=== PATIENT | female | born 1950 | race Caucasian/White ===

== ENCOUNTER 2024-02-26 14:52 | Outpatient (AMB) | payer MEDICARE, SELFPAY ==
[2024-02-26 15:05] VITALS: BP 129/59; PULSE 96; RESP 18; TEMP 36.1; O2SAT 95; BMI 25.0
--- NOTE | 2024-02-26 15:05 | PD.ORTHCLVIS ---
Vital signs 02/26/24 15:05 Height 1.65 m Height Method Stated Weight 68.124 kg Weight Measurement Method Standing Scale BMI 25.0 BP 129/59 L Blood Pressure Source Automatic Cuff Blood Pressure Location Right Upper Arm Position Sitting Respiration 18 Pulse 96 Pulse Source Monitor Temp 96.9 F Temp Source Temporal Artery Scan Pulse Oximetry (%) 95 Oxygen Delivery Method Room Air Med/Allergies Allergies & Medications Allergies betamethasone Allergy (Intermediate, Verified 02/26/24 15:06) Hives clotrimazole Allergy (Verified 02/26/24 15:06) Medication Reconciliation aspirin 81 mg chewable tablet 81 mg PO QDAY 09/28/22 [History Confirmed 02/26/24] magnesium oxide 250 mg PO BID 09/28/22 [History Confirmed 02/26/24] nifedipine 30 mg tablet,extended release 24 hr 30 mg PO DAILY 09/28/22 [History Confirmed 02/26/24] rosuvastatin 40 mg tablet 40 mg PO HS 09/28/22 [History Confirmed 02/26/24] potassium citrate 10 mEq (1,080 mg) tablet,extended release 10 meq PO DAILY 02/01/24 [History Confirmed 02/26/24] acetaminophen 500 mg tablet (Acetaminophen Extra Strength) 1,000 mg (2 x 500 mg) PO Q6H PRN pain #90 tabs 02/11/24 [Rx Confirmed 02/26/24] aspirin 81 mg tablet,delayed release 81 mg PO BID #60 tabs 02/11/24 [Rx Confirmed 02/26/24] doxycycline hyclate 100 mg tablet 100 mg PO BID #14 tabs 02/11/24 [Rx Confirmed 02/26/24] gabapentin 300 mg capsule 300 mg PO .qhs #30 caps 02/11/24 [Rx Confirmed 02/26/24] sennosides 8.6 mg-docusate sodium 50 mg tablet (Senna-S) 1 tab-cap PO QDAY #30 tabs 02/11/24 [Rx Confirmed 02/26/24] cyclobenzaprine 5 mg tablet 5 mg PO QHS PRN muscle spasm #30 tabs 02/26/24 [Rx] oxycodone 5 mg tablet 5 mg PO Q6H PRN pain #28 tabs 02/26/24 [Rx] Subjective Visit Visit for: follow up visit and knee Immunization / Flu Flu Vaccine in the Last 12 Months: No Flu Vaccine Exclusion Criteria: No Exclusion Criteria History of Present Illness Chief complaint: 2 WEEK POST OP TKA Ananya is a pleasant 73-year-old female with 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 She is doing well status post left total knee replacement. We will get x-rays at the next visit. She is to transition outpatient physical therapy Personal History Occupation: RETIRED Hobbies: GARDENING Pain Pain level (0-10): 8 Pain duration: NO Pain location: inside (medial), outside (lateral), anterior and posterior Pain quality: sharp, dull and aching Pain timing: increases with activity Associated signs & symptoms: numbness Ambulatory data Ambulatory device: walker Treatments Improvement with previous injections: No Improvement with PT: No Improvement with NSAIDS: n/a Review of Systems Review of Systems: All systems negative unless otherwise noted in HPI. Exam Exam Patient is in no acute distress and is cooperative with the examination today. Breathing is nonlabored. In no respiratory distress. Bilateral extremities were evaluated and demonstrates sensation intact to light touch. Palpable pedal pulses are present. No significant edema is present. Bilateral hips were examined. The patient has no pain with log roll of the hips. Internal rotation to 30 degrees and external rotation to 30 degrees is painless. Negative FADIR. Left knee incision is clean dry and intact. I can see evidence of The right knee was also examined. The right knee is in [varus] alignment. Range of motion from [0-120] degrees. Knee is stable to varus and valgus as well as AP translation with <5mm. Patient has a [negative] McMurrays. There is [no] pain with patellofemoral compression and [no] crepitus noted. The knee is [tender] to palpation [medially]. Assessment and Plan Problem List (1) History of total left knee replacement: Status: Acute Plan: Patient is doing well status post left total knee replacement. We will see her in approximately 4 weeks. She should transition outpatient physical therapy. She works. Advanced Care Planning Discussion Advance care planning discussed with:: patient Office Procedures GNS Level of Care Nursing/Assessment Patient Status: Established Patient Nursing Assessment/Reassesment: Medication Reconciliation, Update PMH in EMR and Vital Signs Coordination of Care: Complex Care and Chronic Disease 1-5, Education Complex Pt/Fam, Consent,records obtained, informed consent, Results/Orders obtained and Staff clarify orders Established Patient Charge Established Patient Point Assignment: 95 Established Patient Point Charge: Level 3 (80-115) Past Medical History Past Medical History Have you ever been diagnosed with any of the following: Neurological Problems Seizures: No Cardiology Problems Myocardial Infarction: No Cardiac Arrhythmia: No Atrial Fibrillation: No Angina: No Heart Murmur: No Coronary Artery Disease: No Atherosclerotic Heart Disease: No Peripheral Vascular Disease: No Hypercholesterolemia: Yes Aneurysm: No Congestive Heart Failure: No Congenital Heart Disease: No Valvular Heart Disease: No Rheumatic Fever: No Cardiomyopathy: No Edema: No Pericarditis: No Cellulitis: No Deep Vein Thrombosis: No Hypertension: Yes Hypotension: No Varicose Veins: No Respiratory Problems Chronic Obstructive Pulmonary Disease (COPD): No Asthma: No Smoking: No Smoking Exposure: No Stomache/Intestinal Problems Hepatitis: No Diverticulitis: Yes Diverticulosis: Yes Colorectal Cancer: No Obesity: Yes Genital/Urinary Problems Renal Disease: No Kidney Stones: Yes (many yrs ago) Prostate Cancer: No Reproductive Problems Breast Cancer: No Endometriosis: Yes Genital Herpes: No Gonorrhea: No Pelvic Inflammatory Disease: No Previous Pregnancies: No Syphilis: No Testicular Cancer: No Uterine Prolapse: No Musculoskeletal Problems Bone Cancer: No Arthritis: Yes Carpal Tunnel Syndrome: No Head,Eye,Nose,Throat Problems Cataracts: No Endocrine Problems Diabetes Mellitus Type 1: No Diabetes Mellitus Type 2: No Blood Problems Sickle Cell Disease: No Other Problems Hospitalization: Yes (surgery) Down Syndrome: No Developmental Delay: No Shingles: No Falls: No Blood Transfusions: No Blood Transfusion Reaction: No Anesthesia Reactions: No Organ Transplant: No Chemotherapy: No Radiation Therapy: No Hyperbaric Therapy: No MRSA: No VRSA: No Vancomycin-Resistant Enterococci: No Human Immunodeficiency Virus (HIV): No Chicken Pox: Yes Measles: Yes Mumps: No Rubella (Sinhala Measles): No Pertussis: No Clostridium Difficile: No Cancer: No Cervical Cancer: No Lung Cancer: No Ovarian Cancer: No Surgical History Coronary Artery Bypass Graft: No Valve Replacement: No Hysterectomy: Yes Pacemaker: No Thyroidectomy: No
== END 2024-02-26 15:20 | disposition home or self-care (01) ==
LOC: HODSRG 14:52
PROVIDERS: Supervising Provider Orthopaedic Surgery Adult Reconstructive Orthopaedic Surgery; Visit Provider Orthopaedic Surgery Adult Reconstructive Orthopaedic Surgery
DX: Z96.652 Presence of left artificial knee joint (principal); M17.0 Bilateral primary osteoarthritis of knee; I10 Essential (primary) hypertension; E78.00 Pure hypercholesterolemia, unspecified
CPT/HCPCS: 99213; G0463

== ENCOUNTER → 2024-03-18 | Outpatient (CLI) | payer MEDICARE, SELFPAY ==
--- NOTE | 2024-03-18 14:32 | XR_ITS ---
Examination: Left knee 4 views TECHNIQUE: AP oblique lateral axial left knee 4 views standing Exam date and time: March 18, 2024 1541 hours INDICATIONS: Status post knee arthroplasty February 03, 2024 FINDINGS: Moderate osteopenia Total left knee arthroplasty. Satisfactory alignment No patellar dislocation Small to moderate knee effusion IMPRESSION: Total left knee arthroplasty with satisfactory alignment
== END | disposition home or self-care (01) ==
LOC: CDIM 14:14
PROVIDERS: PCP Physician Assistant; Referring Provider Orthopaedic Surgery Adult Reconstructive Orthopaedic Surgery; Visit Provider Orthopaedic Surgery Adult Reconstructive Orthopaedic Surgery
DX: M17.12 Unilateral primary osteoarthritis, left knee (principal); Z96.652 Presence of left artificial knee joint
CPT/HCPCS: 73564

== ENCOUNTER 2024-03-25 09:44 | Outpatient (AMB) | payer MEDICARE, SELFPAY ==
[2024-03-25 10:10] VITALS: BP 136/84; PULSE 99; RESP 18; TEMP 36.1; O2SAT 98; BMI 25.2
--- NOTE | 2024-03-25 10:10 | PD.ORTHCLVIS ---
Vital signs 03/25/24 10:10 Height 1.65 m Height Method Stated Weight 68.663 kg Weight Measurement Method Standing Scale BMI 25.2 BP 136/84 H Blood Pressure Source Automatic Cuff Blood Pressure Location Right Upper Arm Position Sitting Respiration 18 Pulse 99 Pulse Source Monitor Temp 96.9 F Temp Source Temporal Artery Scan Pulse Oximetry (%) 98 Oxygen Delivery Method Room Air Med/Allergies Allergies & Medications Allergies betamethasone Allergy (Intermediate, Verified 03/25/24 10:12) Hives clotrimazole Allergy (Verified 03/25/24 10:12) Medication Reconciliation aspirin 81 mg chewable tablet 81 mg PO QDAY 09/28/22 [History Confirmed 03/25/24] magnesium oxide 250 mg PO BID 09/28/22 [History Confirmed 03/25/24] nifedipine 30 mg tablet,extended release 24 hr 30 mg PO DAILY 09/28/22 [History Confirmed 03/25/24] rosuvastatin 40 mg tablet 40 mg PO HS 09/28/22 [History Confirmed 03/25/24] potassium citrate 10 mEq (1,080 mg) tablet,extended release 10 meq PO DAILY 02/01/24 [History Confirmed 03/25/24] acetaminophen 500 mg tablet (Acetaminophen Extra Strength) 1,000 mg (2 x 500 mg) PO Q6H PRN pain #90 tabs 02/11/24 [Rx Confirmed 03/25/24] aspirin 81 mg tablet,delayed release 81 mg PO BID #60 tabs 02/11/24 [Rx Confirmed 03/25/24] doxycycline hyclate 100 mg tablet 100 mg PO BID #14 tabs 02/11/24 [Rx Confirmed 03/25/24] gabapentin 300 mg capsule 300 mg PO .qhs #30 caps 02/11/24 [Rx Confirmed 03/25/24] sennosides 8.6 mg-docusate sodium 50 mg tablet (Senna-S) 1 tab-cap PO QDAY #30 tabs 02/11/24 [Rx Confirmed 03/25/24] cyclobenzaprine 5 mg tablet 5 mg PO QHS PRN muscle spasm #30 tabs 02/26/24 [Rx Confirmed 03/25/24] oxycodone 5 mg tablet 5 mg PO Q6H PRN pain #28 tabs 02/26/24 [Rx Confirmed 12/10/24] Subjective Visit Visit for: post op #2 and knee Immunization / Flu Flu Vaccine in the Last 12 Months: Yes Flu Vaccine Exclusion Criteria: Already Received History of Present Illness Chief complaint: POST OP Ananya is a pleasant 73-year-old female with 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 She is doing well status post left total knee replacement. She is 6 weeks status post left total knee replacement. The incision looks great. She is working with [facility] Personal History Occupation: RETIRED Hobbies: GARDENING Pain Pain level (0-10): 3 Pain duration: COMES AND GOES Pain location: anterior Pain quality: dull and aching Pain timing: increases with activity Associated signs & symptoms: numbness Ambulatory data Ambulatory device: cane Treatments Improvement with previous injections: No Improvement with PT: No Improvement with NSAIDS: n/a Review of Systems Review of Systems: All systems negative unless otherwise noted in HPI. Exam Exam Patient is in no acute distress and is cooperative with the examination today. Breathing is nonlabored. In no respiratory distress. Bilateral extremities were evaluated and demonstrates sensation intact to light touch. Palpable pedal pulses are present. No significant edema is present. Bilateral hips were examined. The patient has no pain with log roll of the hips. Internal rotation to 30 degrees and external rotation to 30 degrees is painless. Negative FADIR. Left knee incision is clean dry and intact. I can see evidence of The right knee was also examined. The right knee is in [varus] alignment. Range of motion from [0-120] degrees. Knee is stable to varus and valgus as well as AP translation with <5mm. Patient has a [negative] McMurrays. There is [no] pain with patellofemoral compression and [no] crepitus noted. The knee is [tender] to palpation [medially]. Assessment and Plan Problem List (1) History of total left knee replacement: Status: Acute Plan: Patient is doing well status post left total knee replacement. We will see her in approximately 6 weeks. We will see her in approximately 6 to 8 weeks for routine follow-up. Her range of motion is fantastic at this time Advanced Care Planning Discussion Advance care planning discussed with:: patient Office Procedures GNS Level of Care Nursing/Assessment Patient Status: Established Patient Nursing Assessment/Reassesment: Medication Reconciliation, Update PMH in EMR and Vital Signs Coordination of Care: Complex Care and Chronic Disease 1-5, Education Complex Pt/Fam, Consent,records obtained, informed consent, Results/Orders obtained and Staff clarify orders Established Patient Charge Established Patient Point Assignment: 95 Established Patient Point Charge: EP Level 3 (80-115) Past Medical History Past Medical History Have you ever been diagnosed with any of the following: Neurological Problems Seizures: No Cardiology Problems Myocardial Infarction: No Cardiac Arrhythmia: No Atrial Fibrillation: No Angina: No Heart Murmur: No Coronary Artery Disease: No Atherosclerotic Heart Disease: No Peripheral Vascular Disease: No Hypercholesterolemia: Yes Aneurysm: No Congestive Heart Failure: No Congenital Heart Disease: No Valvular Heart Disease: No Rheumatic Fever: No Cardiomyopathy: No Edema: No Pericarditis: No Cellulitis: No Deep Vein Thrombosis: No Hypertension: Yes Hypotension: No Varicose Veins: No Respiratory Problems Chronic Obstructive Pulmonary Disease (COPD): No Asthma: No Smoking: No Smoking Exposure: No Stomache/Intestinal Problems Hepatitis: No Diverticulitis: Yes Diverticulosis: Yes Colorectal Cancer: No Obesity: Yes Genital/Urinary Problems Renal Disease: No Kidney Stones: Yes (many yrs ago) Prostate Cancer: No Reproductive Problems Breast Cancer: No Endometriosis: Yes Genital Herpes: No Gonorrhea: No Pelvic Inflammatory Disease: No Previous Pregnancies: No Syphilis: No Testicular Cancer: No Uterine Prolapse: No Musculoskeletal Problems Bone Cancer: No Arthritis: Yes Carpal Tunnel Syndrome: No Head,Eye,Nose,Throat Problems Cataracts: No Endocrine Problems Diabetes Mellitus Type 1: No Diabetes Mellitus Type 2: No Blood Problems Sickle Cell Disease: No Other Problems Hospitalization: Yes (surgery) Down Syndrome: No Developmental Delay: No Shingles: No Falls: No Blood Transfusions: No Blood Transfusion Reaction: No Anesthesia Reactions: No Organ Transplant: No Chemotherapy: No Radiation Therapy: No Hyperbaric Therapy: No MRSA: No VRSA: No Vancomycin-Resistant Enterococci: No Human Immunodeficiency Virus (HIV): No Chicken Pox: Yes Measles: Yes Mumps: No Rubella ([place] Measles): No Pertussis: No Clostridium Difficile: No Cancer: No Cervical Cancer: No Lung Cancer: No Ovarian Cancer: No Surgical History Coronary Artery Bypass Graft: No Valve Replacement: No Total Knee Replacement: Yes Hysterectomy: Yes Pacemaker: No Thyroidectomy: No
== END 2024-03-25 10:17 | disposition home or self-care (01) ==
LOC: HODSRG 09:44
PROVIDERS: Supervising Provider Orthopaedic Surgery Adult Reconstructive Orthopaedic Surgery; Visit Provider Orthopaedic Surgery Adult Reconstructive Orthopaedic Surgery
DX: Z96.652 Presence of left artificial knee joint (principal); M17.0 Bilateral primary osteoarthritis of knee; I10 Essential (primary) hypertension; E78.00 Pure hypercholesterolemia, unspecified
CPT/HCPCS: 99213; G0463

== ENCOUNTER 2024-05-20 09:53 | Outpatient (AMB) | payer MEDICARE, SELFPAY ==
[2024-05-20 10:47] VITALS: BP 118/72; PULSE 81; RESP 18; TEMP 36.1; O2SAT 96; BMI 25.8
--- NOTE | 2024-05-20 10:47 | PD.ORTHCLVIS ---
Vital signs 05/20/24 10:47 Height 1.65 m Height Method Stated Weight 70.335 kg Weight Measurement Method Standing Scale BMI 25.8 BP 118/72 Blood Pressure Source Automatic Cuff Blood Pressure Location Right Upper Arm Position Sitting Respiration 18 Pulse 81 Pulse Source Monitor Temp 97.0 F Temp Source Temporal Artery Scan Pulse Oximetry (%) 96 Oxygen Delivery Method Room Air Med/Allergies Allergies & Medications Allergies betamethasone Allergy (Intermediate, Verified 05/20/24 10:47) Hives clotrimazole Allergy (Verified 05/20/24 10:47) Medication Reconciliation aspirin 81 mg chewable tablet 81 mg PO QDAY 09/28/22 [History Confirmed 05/20/24] magnesium oxide 250 mg PO BID 09/28/22 [History Confirmed 05/20/24] nifedipine 30 mg tablet,extended release 24 hr 30 mg PO DAILY 09/28/22 [History Confirmed 05/20/24] rosuvastatin 40 mg tablet 40 mg PO HS 09/28/22 [History Confirmed 05/20/24] potassium citrate 10 mEq (1,080 mg) tablet,extended release 10 meq PO DAILY 02/01/24 [History Confirmed 05/20/24] acetaminophen 500 mg tablet (Acetaminophen Extra Strength) 1,000 mg (2 x 500 mg) PO Q6H PRN pain #90 tabs 02/11/24 [Rx Confirmed 05/20/24] aspirin 81 mg tablet,delayed release 81 mg PO BID #60 tabs 02/11/24 [Rx Confirmed 05/20/24] doxycycline hyclate 100 mg tablet 100 mg PO BID #14 tabs 02/11/24 [Rx Confirmed 05/20/24] gabapentin 300 mg capsule 300 mg PO .qhs #30 caps 02/11/24 [Rx Confirmed 05/20/24] sennosides 8.6 mg-docusate sodium 50 mg tablet (Senna-S) 1 tab-cap PO QDAY #30 tabs 02/11/24 [Rx Confirmed 05/20/24] cyclobenzaprine 5 mg tablet 5 mg PO QHS PRN muscle spasm #30 tabs 02/26/24 [Rx Confirmed 05/20/24] oxycodone 5 mg tablet 5 mg PO Q6H PRN pain #28 tabs 02/26/24 [Rx Confirmed 05/20/24] Exam Exam Patient is in no acute distress and is cooperative with the examination today. Breathing is nonlabored. In no respiratory distress. Bilateral extremities were evaluated and demonstrates sensation intact to light touch. Palpable pedal pulses are present. No significant edema is present. Bilateral hips were examined. The patient has no pain with log roll of the hips. Internal rotation to 30 degrees and external rotation to 30 degrees is painless. Negative FADIR. Left knee incision is clean dry and intact. ROM 0-100 The right knee was also examined. The right knee is in [varus] alignment. Range of motion from [0-120] degrees. Knee is stable to varus and valgus as well as AP translation with <5mm. Patient has a [negative] McMurrays. There is [no] pain with patellofemoral compression and [no] crepitus noted. The knee is [tender] to palpation [medially]. Assessment and Plan Problem List (1) History of total left knee replacement: Status: Acute Plan: Patient is doing well status post left total knee replacement. We will see her in approximately 12 weeks. We will see her in approximately 6 to 8 weeks for routine follow-up. Her range of motion is fantastic at this time Advanced Care Planning Discussion Advance care planning discussed with:: patient Office Procedures GNS Level of Care Nursing/Assessment Patient Status: Established Patient Nursing Assessment/Reassesment: Medication Reconciliation, Update PMH in EMR and Vital Signs Coordination of Care: Complex Care and Chronic Disease 1-5, Education Complex Pt/Fam, Consent,records obtained, informed consent, Results/Orders obtained and Staff clarify orders Established Patient Charge Established Patient Point Assignment: 95 Established Patient Point Charge: EP Level 3 (80-115) MA Intake Visit Data Collection New Patient or Established: Established Patient (seen at [facility] within 3 years) Reason for Visit:: POST OP TKA Seen by Clinical Staff ONLY (RN/MA): No Verbal consent obtained for Telemed visit?: No Rn Oncology Research Required: No PCP or OBGYN visit in last 3 months: Yes Hx Now: No Do You Feel Safe at Home: Yes Authorities Contacted: N/A Questionairres Past Medical History Past Medical History Have you ever been diagnosed with any of the following: Neurological Problems Seizures: No Cardiology Problems Myocardial Infarction: No Cardiac Arrhythmia: No Atrial Fibrillation: No Angina: No Heart Murmur: No Coronary Artery Disease: No Atherosclerotic Heart Disease: No Peripheral Vascular Disease: No Hypercholesterolemia: Yes Aneurysm: No Congestive Heart Failure: No Congenital Heart Disease: No Valvular Heart Disease: No Rheumatic Fever: No Cardiomyopathy: No Edema: No Pericarditis: No Cellulitis: No Deep Vein Thrombosis: No Hypertension: Yes Hypotension: No Varicose Veins: No Respiratory Problems Chronic Obstructive Pulmonary Disease (COPD): No Asthma: No Smoking: No Smoking Exposure: No Stomache/Intestinal Problems Hepatitis: No Diverticulitis: Yes Diverticulosis: Yes Colorectal Cancer: No Obesity: Yes Genital/Urinary Problems Renal Disease: No Kidney Stones: Yes (many yrs ago) Prostate Cancer: No Reproductive Problems Breast Cancer: No Endometriosis: Yes Genital Herpes: No Gonorrhea: No Pelvic Inflammatory Disease: No Previous Pregnancies: No Syphilis: No Testicular Cancer: No Uterine Prolapse: No Musculoskeletal Problems Bone Cancer: No Arthritis: Yes Carpal Tunnel Syndrome: No Head,Eye,Nose,Throat Problems Cataracts: No Endocrine Problems Diabetes Mellitus Type 1: No Diabetes Mellitus Type 2: No Blood Problems Sickle Cell Disease: No Other Problems Hospitalization: Yes (surgery) Down Syndrome: No Developmental Delay: No Shingles: No Falls: No Blood Transfusions: No Blood Transfusion Reaction: No Anesthesia Reactions: No Organ Transplant: No Chemotherapy: No Radiation Therapy: No Hyperbaric Therapy: No MRSA: No VRSA: No Vancomycin-Resistant Enterococci: No Human Immunodeficiency Virus (HIV): No Chicken Pox: Yes Measles: Yes Mumps: No Rubella (Faroese Measles): No Pertussis: No Clostridium Difficile: No Cancer: No Cervical Cancer: No Lung Cancer: No Ovarian Cancer: No Surgical History Coronary Artery Bypass Graft: No Valve Replacement: No Total Knee Replacement: Yes Hysterectomy: Yes Pacemaker: No Thyroidectomy: No Subjective Visit Visit for: follow up visit, post op #2 and knee Immunization / Flu Flu Vaccine in the Last 12 Months: Yes Flu Vaccine Exclusion Criteria: Already Received History of Present Illness Chief complaint: POST OP TKA Ananya is a pleasant 73-year-old female with 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 She is doing well status post left total knee replacement. She is 12 weeks status post left total knee replacement. T Pain Pain level (0-10): 0 Associated signs & symptoms: none Ambulatory data Ambulatory device: cane Treatments Improvement with previous injections: No Improvement with PT: No Improvement with NSAIDS: n/a Review of Systems Review of Systems: All systems negative unless otherwise noted in HPI.
== END 2024-05-20 10:54 | disposition home or self-care (01) ==
PROVIDERS: PCP Physician Assistant; Referring Provider Physician Assistant; Supervising Provider Orthopaedic Surgery Adult Reconstructive Orthopaedic Surgery; Visit Provider Orthopaedic Surgery Adult Reconstructive Orthopaedic Surgery
DX: Z96.652 Presence of left artificial knee joint (principal); M17.0 Bilateral primary osteoarthritis of knee; I10 Essential (primary) hypertension; E78.00 Pure hypercholesterolemia, unspecified
CPT/HCPCS: 99213; G0463

== ENCOUNTER → 2024-08-08 | Outpatient (CLI) | payer MEDICARE, SELFPAY ==
[2024-08-09 08:54] LABS: BVAG Candida Negative (Negative); Bacterial Vaginosis Markers Negative (Negative); Candida glabrata Positive (Negative); Candida krusei PCR Negative (Negative); Trichomonas Negative (Negative)
== END | disposition home or self-care (01) ==
LOC: SLDO 15:27
PROVIDERS: Referring Provider Specialist; Visit Provider Specialist
DX: A59.01 Trichomonal vulvovaginitis (principal); B37.89 Other sites of candidiasis; N76.0 Acute vaginitis
CPT/HCPCS: 81514

== ENCOUNTER 2024-08-14 10:36 | Outpatient (AMB) | payer MEDICARE, SELFPAY ==
[2024-08-14 11:14] VITALS: BP 125/77; PULSE 81; RESP 18; TEMP 36.1; O2SAT 96; BMI 26.0
--- NOTE | 2024-08-14 11:14 | PD.ORTHCLVIS ---
Vital signs 08/14/24 11:14 Height 1.65 m Height Method Stated Weight 70.845 kg Weight Measurement Method Standing Scale BMI 26.0 BP 125/77 Blood Pressure Source Automatic Cuff Blood Pressure Location Left Upper Arm Position Sitting Respiration 18 Pulse 81 Pulse Source Monitor Temp 96.9 F Temp Source Temporal Artery Scan Pulse Oximetry (%) 96 Oxygen Delivery Method Room Air Med/Allergies Allergies & Medications Allergies betamethasone Allergy (Intermediate, Verified 08/14/24 11:14) Hives clotrimazole Allergy (Verified 08/14/24 11:14) Medication Reconciliation aspirin 81 mg chewable tablet 81 mg PO QDAY 09/28/22 [History Confirmed 08/14/24] magnesium oxide 250 mg PO BID 09/28/22 [History Confirmed 08/14/24] nifedipine 30 mg tablet,extended release 24 hr 30 mg PO DAILY 09/28/22 [History Confirmed 08/14/24] rosuvastatin 40 mg tablet 40 mg PO HS 09/28/22 [History Confirmed 08/14/24] potassium citrate 10 mEq (1,080 mg) tablet,extended release 10 meq PO DAILY 02/01/24 [History Confirmed 08/14/24] acetaminophen 500 mg tablet (Acetaminophen Extra Strength) 1,000 mg (2 x 500 mg) PO Q6H PRN pain #90 tabs 02/11/24 [Rx Confirmed 08/14/24] aspirin 81 mg tablet,delayed release 81 mg PO BID #60 tabs 02/11/24 [Rx Confirmed 08/14/24] doxycycline hyclate 100 mg tablet 100 mg PO BID #14 tabs 02/11/24 [Rx Confirmed 08/14/24] gabapentin 300 mg capsule 300 mg PO .qhs #30 caps 02/11/24 [Rx Confirmed 08/14/24] sennosides 8.6 mg-docusate sodium 50 mg tablet (Senna-S) 1 tab-cap PO QDAY #30 tabs 02/11/24 [Rx Confirmed 08/14/24] cyclobenzaprine 5 mg tablet 5 mg PO QHS PRN muscle spasm #30 tabs 02/26/24 [Rx Confirmed 08/14/24] oxycodone 5 mg tablet 5 mg PO Q6H PRN pain #28 tabs 02/26/24 [Rx Confirmed 08/14/24] Exam Exam Patient is in no acute distress and is cooperative with the examination today. Breathing is nonlabored. In no respiratory distress. Bilateral extremities were evaluated and demonstrates sensation intact to light touch. Palpable pedal pulses are present. No significant edema is present. Bilateral hips were examined. The patient has no pain with log roll of the hips. Internal rotation to 30 degrees and external rotation to 30 degrees is painless. Negative FADIR. Left knee incision is clean dry and intact. ROM 0-100 The right knee was also examined. The right knee is in [varus] alignment. Range of motion from [0-120] degrees. Knee is stable to varus and valgus as well as AP translation with <5mm. Patient has a [negative] [place]. There is [no] pain with patellofemoral compression and [no] crepitus noted. The knee is [tender] to palpation [medially]. Assessment and Plan Problem List (1) History of total left knee replacement: Status: Acute Plan: Patient is doing well status post left total knee replacement. She is doing well and her right knee actually is bothering her more. She has [id number] arthritis on the right knee but like to hold off on surgery for now Advanced Care Planning Discussion Advance care planning discussed with:: patient Office Procedures GNS Level of Care Nursing/Assessment Patient Status: Established Patient Nursing Assessment/Reassesment: Medication Reconciliation, Update PMH in EMR and Vital Signs Coordination of Care: Complex Care and Chronic Disease 1-5, Education Complex Pt/Fam, Consent,records obtained, informed consent, Results/Orders obtained and Staff clarify orders Established Patient Charge Established Patient Point Assignment: 95 Established Patient Point Charge: EP Level 3 (80-115) MT Intake Visit Data Collection New Patient or Established: Established Patient (seen at [facility] within 3 years) Reason for Visit:: FOLLOW UP PCP or OBGYN visit in last 3 months: Yes Hx Now: No Do You Feel Safe at Home: Yes Authorities Contacted: N/A Questionairres Past Medical History Past Medical History Have you ever been diagnosed with any of the following: Neurological Problems Seizures: No Cardiology Problems Myocardial Infarction: No Cardiac Arrhythmia: No Atrial Fibrillation: No Angina: No Heart Murmur: No Coronary Artery Disease: No Atherosclerotic Heart Disease: No Peripheral Vascular Disease: No Hypercholesterolemia: Yes Aneurysm: No Congestive Heart Failure: No Congenital Heart Disease: No Valvular Heart Disease: No Rheumatic Fever: No Cardiomyopathy: No Edema: No Pericarditis: No Cellulitis: No Deep Vein Thrombosis: No Hypertension: Yes Hypotension: No Varicose Veins: No Respiratory Problems Chronic Obstructive Pulmonary Disease (COPD): No Asthma: No Smoking: No Smoking Exposure: No Stomache/Intestinal Problems Hepatitis: No Diverticulitis: Yes Diverticulosis: Yes Colorectal Cancer: No Obesity: Yes Genital/Urinary Problems Renal Disease: No Kidney Stones: Yes (many yrs ago) Reproductive Problems Breast Cancer: No Endometriosis: Yes Genital Herpes: No Gonorrhea: No Pelvic Inflammatory Disease: No Previous Pregnancies: No Syphilis: No Uterine Prolapse: No Musculoskeletal Problems Bone Cancer: No Arthritis: Yes Carpal Tunnel Syndrome: No Head,Eye,Nose,Throat Problems Cataracts: No Endocrine Problems Diabetes Mellitus Type 1: No Diabetes Mellitus Type 2: No Blood Problems Sickle Cell Disease: No Other Problems Hospitalization: Yes (surgery) Down Syndrome: No Developmental Delay: No Shingles: No Falls: No Blood Transfusions: No Blood Transfusion Reaction: No Anesthesia Reactions: No Organ Transplant: No Chemotherapy: No Radiation Therapy: No Hyperbaric Therapy: No MRSA: No VRSA: No Vancomycin-Resistant Enterococci: No Human Immunodeficiency Virus (HIV): No Chicken Pox: Yes Measles: Yes Mumps: No Rubella (Sinhala Measles): No Pertussis: No Clostridium Difficile: No Cancer: No Cervical Cancer: No Lung Cancer: No Ovarian Cancer: No Surgical History Coronary Artery Bypass Graft: No Valve Replacement: No Total Knee Replacement: Yes Hysterectomy: Yes Pacemaker: No Thyroidectomy: No Subjective Visit Visit for: follow up visit, post op #2 and knee Immunization / Flu Flu Vaccine in the Last 12 Months: Yes Flu Vaccine Exclusion Criteria: No Exclusion Criteria and Already Received History of Present Illness Chief complaint: POST OP TKA Ananya is a pleasant 73-year-old female with 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 She is doing well status post left total knee replacement. She is 6 months status post left total knee replacement. She reports the right knee is bothering her more than the left. She will hold off on getting it replaced for now Pain Pain level (0-10): 0 Pain duration: ALL DAY Pain location: inside (medial) and anterior Pain quality: aching Pain timing: increases with activity Associated signs & symptoms: none Ambulatory data Ambulatory device: cane Treatments Improvement with previous injections: No Improvement with PT: No Improvement with NSAIDS: n/a Review of Systems Review of Systems: All systems negative unless otherwise noted in HPI.
== END 2024-08-14 11:18 | disposition home or self-care (01) ==
LOC: HODSRG 10:36
PROVIDERS: PCP Physician Assistant; Referring Provider Physician Assistant; Supervising Provider Orthopaedic Surgery Adult Reconstructive Orthopaedic Surgery; Visit Provider Orthopaedic Surgery Adult Reconstructive Orthopaedic Surgery
DX: Z96.652 Presence of left artificial knee joint (principal); M17.0 Bilateral primary osteoarthritis of knee; I10 Essential (primary) hypertension; E78.00 Pure hypercholesterolemia, unspecified
CPT/HCPCS: 99213; G0463